=== PATIENT | female | born 1985 | race Caucasian/White ===

== ENCOUNTER 2019-09-06 14:51 | Emergency (ER) | payer SELFPAY ==
--- NOTE | 2019-09-06 16:30 | RAD REPORT ---
EXAM DESCRIPTION: CT - Head C Spine Mpr Wo Con - 09/06/2019 4:02 pm CLINICAL HISTORY: Slurred speech. Head and neck injury status post fall. Head and neck pain COMPARISON: CT 2014 TECHNIQUE: Computed axial tomography of the head and cervical spine was obtained. Sagittal and coronal reconstruction was performed. All CT scans are performed using dose optimization technique as appropriate and may include automated exposure control or mA/KV adjustment according to patient size. FINDINGS: An intracranial bleed is not seen. The ventricles are normal in caliber. An extra-axial fl uid collection is not noted.Fluid within the visualized sinuses and mastoids is not seen A cervical fracture is not visualized. No dislocation is noted. IMPRESSION: No acute intracranial abnormality is seen. A cervical fracture is not visualized. If the patient continues to have symptoms to suggest intracra nial /spinal cord pathology then MRI would be recommended
--- NOTE | 2019-09-06 16:55 | ER ---
Nurse's Notes [facility] Name: Veronica Pompa Age: 33 yrs Sex: Female : 1985 Arrival Date: 09/06/2019 Time: 14:54 Bed 15 Private MD: Diagnosis: Superficial injury of head;Facial Laceration: Right lateal orbit. Presentation: 09/05 14:54 Chief complaint: EMS states: She was arrested earlier today and seen here for a legal aj1 draw, afterward she was brought to the prison, they checked on her at 1400 and she was fine. When they checked on her again at 1415 she had blood all over her shirt, a laceration to the right eyebrow, and a hematoma to the back of the head. Patient states that she fell, but is unable to verbalize what happened. Patient's speech is slurred, but she answers questions appropriately. Coronavirus screen: The patient has NOT traveled to a country currently being monitored by the [facility] within the last 14 days. Ebola Screen: Patient denies travel to an Ebola-affected area in the 21 days before illness onset. Initial Sepsis Screen: Does the patient meet any 2 criteria? No. Patient's initial sepsis screen is negative. Does the patient have a suspected source of infection? No. Patient's initial sepsis screen is negative. Risk Assessment: Do you want to hurt yourself or someone else? Patient reports no desire to harm self or others. 14:54 Method Of Arrival: Ambulatory aj1 14:54 Acuity: NOÉ 2 aj1 Triage Assessment: 15:03 General: Appears in no apparent distress. unkempt, Behavior is calm, cooperative. Pain: aj1 Denies pain. Historical: - Allergies: 15:03 PENICILLINS; aj1 - Home Meds: 15:03 Methadone Oral [Active]; aj1 - Immunization history:: Adult Immunizations up to date. - Social history:: Smoking status: Patient/guardian denies using tobacco. Screenin:04 Abuse screen: Denies threats or abuse. Denies injuries from another. Nutritional aj1 screening: No deficits noted. Tuberculosis screening: No symptoms or risk factors identified. 17:44 Fall Risk Fall in past 12 months (25 points). Secondary diagnosis (15 points) AMS. No aj1 IV (0 pts). Ambulatory Aid- None/Bed Rest/Nurse Assist (0 pts). Gait- Normal/Bed Rest/Wheelchair (0 pts) Mental Status- Overestimates/Forgets Limitations (15 pts.). Total [place]spin[place] Fall Scale indicates High Risk Score (45 or more points). Frequent Obs/Assessments Occuring. Assessment: 15:04 General: Appears in no apparent distress. unkempt. Pain: Complains of pain in scalp and aj1 outer aspect of right eyebrow. Neuro: Level of Consciousness is confused, lethargic, Oriented to person, place, time, Moves all extremities. Full function Speech is slurred. Cardiovascular: Heart tones S1 S2 present Patient's skin is warm and dry. Rhythm is sinus rhythm. Respiratory: Airway is patent Respiratory effort is even, unlabored, Respiratory pattern is regular, symmetrical. GI: No signs and/or symptoms were reported involving the gastrointestinal system. : No signs and/or symptoms were reported regarding the genitourinary system. EENT: No signs and/or symptoms were reported regarding the EENT system. Derm: Skin is pink, warm \T\ dry. normal. Musculoskeletal: Circulation, motion, and sensation intact. Injury Description: Laceration sustained to outer aspect of right eyebrow hematoma noted to back of head. 16:07 Reassessment: Patient appears in no apparent distress at this time. No changes from aj1 previously documented assessment. Patient and/or family updated on plan of care and expected duration. Pain level reassessed. 17:05 Reassessment: Patient appears in no apparent distress at this time. No changes from aj1 previously documented assessment. Patient and/or family updated on plan of care and expected duration. Pain level reassessed. Vital Signs: 14:54 BP 110 / 85; Pulse 67; Resp 12; Pulse Ox 99% on R/A; Height 5 ft. 6 in. (167.64 cm); aj1 16:07 BP 100 / 80; Pulse 54; Resp 17; Pulse Ox 100% on R/A; aj1 17:05 BP 95 / 57; Pulse 62; Resp 16; Pulse Ox 98% on R/A; aj1 17:45 BP 95 / 67; Pulse 51; Resp 18; Pulse Ox 100% on R/A; aj1 [place] Coma Score: 15:49 Eye Response: to voice(3). Verbal Response: confused(4). Motor Response: obeys kdr commands(6). Total: 13. ED Course: 14:54 Patient arrived in ED. aj1 15:02 Triage completed. aj1 15:03 Arm band placed on. aj1 15:04 Patient has correct armband on for positive identification. aj1 15:04 No provider procedures requiring assistance completed. aj1 15:06 Mykel Kiser MD is Attending Physician. kdr 15:12 Avril Garcia RN is Primary Nurse. aj1 16:04 CT Head C Spine In Process Unspecified. EDMS 17:44 Patient did not have IV access during this emergency room visit. aj1 17:46 Wound care: to laceration located on outer aspect of right eyebrow was cleaned with aj1 Hibiclens, irrigated with normal saline, steri-strips applied, Patient tolerated well. Administered Medications: No medications were administered Outcome: 16:54 Discharge ordered by . kdr 17:46 Discharged to Law Enforcement aj1 17:46 Condition: stable 17:46 Discharge instructions given to patient, police, Instructed on discharge instructions, follow up and referral plans. medication usage, Demonstrated understanding of instructions, follow-up care, medications, Prescriptions given X 1. 17:59 Patient left the ED. aj1 Signatures: Dispatcher [employer] [facility] Avril Garcia RN RN aj Mykel Kiser MD MD kdr
--- NOTE | 2019-09-06 16:56 | EDPHYS ---
Physician Documentation [facility] Name: Veronica Pompa Age: 33 yrs Sex: Female : 1985 Arrival Date: 09/06/2019 Time: 14:54 Bed 15 Private MD: ED Physician Mykel Kiser HPI: 09/05 15:49 This 33 yrs old Female presents to ER via Ambulatory with complaints of fall kdr and facial laceration. 15:49 The patient or guardian reports abrasion, injury, a laceration, 1 cm(s), clean, simple, kdr pain, swelling, tenderness. The complaints affect the right upper eyelid and lateral canthus of right eye. Context of injury: The problem was sustained at [facility]. Onset: The symptoms/episode began/occurred acutely, just prior to arrival. Associated signs and symptoms: The patient has no apparent associated signs or symptoms, Loss of consciousness: Pertinent positives: patient admits to or smells of alcohol consumption, The patient was in [facility] and may have been here earlier in the day for a blood alcohol draw. Severity of symptoms: At their worst the symptoms were mild, in the emergency department the symptoms are unchanged. It is unknown whether or not the patient has had similar symptoms in the past. It is unknown whether or not the patient has recently seen a physician. Historical: - Allergies: 15:03 PENICILLINS; aj1 - Home Meds: 15:03 Methadone Oral [Active]; aj1 - Immunization history:: Adult Immunizations up to date. - Social history:: Smoking status: Patient/guardian denies using tobacco. ROS: 15:49 Constitutional: Negative for fever, chills, and weight loss, Eyes: Negative for injury, kdr pain, redness, and discharge, Neck: Negative for injury, pain, and swelling, Cardiovascular: Negative for chest pain, palpitations, and edema, Respiratory: Negative for shortness of breath, cough, wheezing, and pleuritic chest pain, Abdomen/GI: Negative for abdominal pain, nausea, vomiting, diarrhea, and constipation, Back: Negative for injury and pain, : Negative for injury, bleeding, discharge, and swelling, MS/Extremity: Negative for injury and deformity, Skin: Negative for injury, rash, and discoloration, Allergy/Immunology: Negative for hives, rash, and allergies, Endocrine: Negative for neck swelling, polydipsia, polyuria, polyphagia, and marked weight changes, Hematologic/Lymphatic: Negative for swollen nodes, abnormal bleeding, and unusual bruising. 15:49 Neuro: Positive for altered mental status, dizziness, weakness. Exam: 15:49 Constitutional: This is a well developed, well nourished patient who is awake, alert, kdr and in no acute distress. Eyes: Pupils equal round and reactive to light, extra-ocular motions intact. Lids and lashes normal. Conjunctiva and sclera are non-icteric and not injected. Cornea within normal limits. Periorbital areas with no swelling, redness, or edema. ENT: Nares patent. No nasal discharge, no septal abnormalities noted. Tympanic membranes are normal and external auditory canals are clear. Oropharynx with no redness, swelling, or masses, exudates, or evidence of obstruction, uvula midline. Mucous membranes moist. Neck: Trachea midline, no thyromegaly or masses palpated, and no cervical lymphadenopathy. Supple, full range of motion without nuchal rigidity, or vertebral point tenderness. No Meningismus. Chest/axilla: Normal chest wall appearance and motion. Nontender with no deformity. No lesions are appreciated. Cardiovascular: Regular rate and rhythm with a normal S1 and S2. No gallops, murmurs, or rubs. Normal PMI, no JVD. No pulse deficits. Respiratory: Lungs have equal breath sounds bilaterally, clear to auscultation and percussion. No rales, rhonchi or wheezes noted. No increased work of breathing, no retractions or nasal flaring. Abdomen/GI: Soft, non-tender, with normal bowel sounds. No distension or tympany. No guarding or rebound. No evidence of tenderness throughout. Back: No spinal tenderness. No costovertebral tenderness. Full range of motion. Skin: Warm, dry with normal turgor. Normal color with no rashes, no lesions, and no evidence of cellulitis. MS/ Extremity: Pulses equal, no cyanosis. Neurovascular intact. Full, normal range of motion. Neuro: Awake and alert, GCS 15, oriented to person, place, time, and situation. Cranial nerves II-XII grossly intact. Motor strength 5/5 in all extremities. Sensory grossly intact. Cerebellar exam normal. Normal gait. Psych: Awake, alert, with orientation to person, place and time. Behavior, mood, and affect are within normal limits. 15:49 Head/face: Noted is abrasion(s), contusion, a laceration(s), that is superficial, that is linear, 1 cm(s). Vital Signs: 14:54 BP 110 / 85; Pulse 67; Resp 12; Pulse Ox 99% on R/A; Height 5 ft. 6 in. (167.64 cm); aj1 16:07 BP 100 / 80; Pulse 54; Resp 17; Pulse Ox 100% on R/A; aj1 17:05 BP 95 / 57; Pulse 62; Resp 16; Pulse Ox 98% on R/A; aj1 17:45 BP 95 / 67; Pulse 51; Resp 18; Pulse Ox 100% on R/A; aj1 [place] Coma Score: 15:49 Eye Response: to voice(3). Verbal Response: confused(4). Motor Response: obeys kdr commands(6). Total: 13. MDM: 16:54 Patient medically screened. kdr 17:28 Data reviewed: vital signs, nurses notes, radiologic studies. Counseling: I had a kdr detailed discussion with the patient and/or guardian regarding: the historical points, exam findings, and any diagnostic results supporting the discharge/admit diagnosis, radiology results, the need for outpatient follow up. 09/05 15:22 Order name: CT Head C Spine; Complete Time: 16:50 bd Administered Medications: No medications were administered Disposition: 09/06/19 16:54 Discharged to Home. Impression: Superficial injury of head, Facial Laceration: Right lateal orbit.. - Condition is Stable. - Discharge Instructions: Head Injury, Adult, [id number]. - Prescriptions for Ibuprofen 600 mg Oral Tablet - take 1 tablet by ORAL route every 6 hours As needed take with food; 12 tablet. - Medication Reconciliation Form, Thank You Letter form. - Follow up: Private Physician; When: 2 - 3 days; Reason: Wound Recheck, If symptoms return, Further diagnostic work-up, Recheck today's complaints, Continuance of care, Re-evaluation by your physician. - Problem is new. - Symptoms have improved. Signatures: Dispatcher [employer] EDAvril Thomas RN RN aj1 Mykel Kiser MD MD kdr Fabian Winchester, JEWEL SAWYER-C JEWEL SAWYER-Cla1 Corrections: (The following items were deleted from the chart) 17:59 16:54 09/06/2019 16:54 Discharged to Home. Impression: Superficial injury of head; aj1 Facial Laceration: Right lateal orbit.. Condition is Stable. Forms are Medication Reconciliation Form, Thank You Letter, Antibiotic Education, Prescription Opioid Use. Follow up: Private Physician; When: 2 - 3 days; Reason: Wound Recheck, If symptoms return, Further diagnostic work-up, Recheck today's complaints, Continuance of care, Re-evaluation by your physician. Problem is new. Symptoms have improved. kdr
[2019-09-06 18:12] VITALS: BP 95/67; O2SAT 100
== END 2019-09-06 17:59 | disposition home or self-care (01) ==
LOC: ER 14:51
DX: S05.41XA Penetrating wound of orbit with or without foreign body, right eye, initial encounter (principal); X58.XXXA Exposure to other specified factors, initial encounter; Y93.89 Activity, other specified; Y92.149 Unspecified place in prison as the place of occurrence of the external cause
CPT/HCPCS: 70450; 72125; 99284